=== PATIENT | female | born 1955 | race Caucasian/White ===

== ENCOUNTER 2018-12-08 06:08 | Day surgery (SDC) | payer MEDICARE ==
[~2018-12-08] VITALS: Ht 154.9 cm; Wt 48.5 kg
[~2018-12-08 06:08] MED LIST: ALENDRONATE70 MG PO; CALCIUM/D600 M3 PO; CENTRUM SILVER ULTRA PO; CENTRUM SILVER1 TA1 PO; LISINOPRIL10 MG PO; NORVASC5 M1 PO
[2018-12-08] MEDS ORDERED: PERCOCET 5/325M1 TAB PO (09:32)
[2018-12-08 10:03] VITALS: BP 131/62
== END 2018-12-08 10:32 | disposition home or self-care (01) ==
LOC: ORM 06:08
PROVIDERS: ATTEND Surgery
PROC: 0HBT0ZX Excision of Right Breast, Open Approach, Diagnostic (ICD-10-PCS; principal; 2018-12-08)
DX: D05.11 Intraductal carcinoma in situ of right breast (principal)

== ENCOUNTER 2021-01-25 09:21 | Day surgery (SDC) | payer MEDICARE ==
[~2021-01-25] VITALS: Ht 154.9 cm; Wt 43.5 kg
[~2021-01-25 09:21] MED LIST changes: +AROMASIN25 MG PO; +PERCOCET 5/325M1 TAB PO; +XGEVA SC
[2021-01-25] MEDS ORDERED: PERCOCET 5/321 COMBO PO (11:40)
[2021-01-25 13:00] VITALS: BP 129/67
== END 2021-01-25 12:53 | disposition home or self-care (01) ==
LOC: ENDO 09:21
PROVIDERS: ATTEND Surgery
PROC: 0DJD8ZZ Inspection of Lower Intestinal Tract, Via Natural or Artificial Opening Endoscopic (ICD-10-PCS; principal; 2021-01-25)
PROC: 06BY3ZC Excision of Hemorrhoidal Plexus, Percutaneous Approach (ICD-10-PCS; 2021-01-25)
DX: Z12.11 Encounter for screening for malignant neoplasm of colon (principal); K64.2 Third degree hemorrhoids; I10 Essential (primary) hypertension; Z85.3 Personal history of malignant neoplasm of breast
CPT/HCPCS: 46947; G0121; C9290

== ENCOUNTER 2021-01-25 16:15 | Emergency (ER) | payer MEDICARE ==
[~2021-01-25] VITALS: Ht 154.9 cm; Wt 43.6 kg
[~2021-01-25 16:15] MED LIST changes: +PERCOCET 5/321 COMBO PO
[2021-01-25 17:06] LABS: HEMATOCRIT 42.5 % (37.0-47.0); HEMOGLOBIN 13.9 g/dl (12.0-16.0); IMMATURE GRANULOCYTES 0.2 % (0.0-5.0); MEAN CELL VOLUME 100.7 fL CALC (80.0-100.0); MEAN CORPUSCULAR HGB 32.9 pG CALC (26.0-32.0); MEAN CORPUSCULAR HGB CONC 32.7 g/dL CAL (32.0-36.0); NEUT# 13.23 thou/uL (2.00-7.15); RED BLOOD COUNT 4.22 mill/uL (4.20-5.60); RED CELL DISTRI WIDTH 12.4 % (11.5-15.5)
[2021-01-25 17:23] LABS: ALBUMIN 4.1 g/dL (3.2-5.0); ALKALINE PHOSPHATASE 63 u/l (38-126); ANION GAP 8 (6-22 (CALC)); BILIRUBIN, TOTAL 0.5 mg/dL (0.0-1.4); BUN 16 mg/dL (8-23); BUN/CREATININE RATIO 35 (12-20 (CALC)); CARBON DIOXIDE 31 mmol/l (22-30); CHLORIDE 100 mmol/l (95-108); CREATININE 0.4 mg/dL (0.5-1.0); GFR > 60 ML/MIN (>=60 (CALC)); GFR FOR AFR.AMER. > 60 ML/MIN (>=60 (CALC)); POTASSIUM 3.4 mmol/l (3.5-5.1); SGOT/AST 34 u/l (9-36); SODIUM 136 mmol/l (137-146)
[2021-01-25 18:34] VITALS: BP 132/76
== END 2021-01-25 18:35 | disposition home or self-care (01) ==
LOC: ED 16:15
PROVIDERS: Emergency Medicine
DX: K91.840 Postprocedural hemorrhage of a digestive system organ or structure following a digestive system procedure (principal); I10 Essential (primary) hypertension; Y83.8 Other surgical procedures as the cause of abnormal reaction of the patient, or of later complication, without mention of misadventure at the time of the procedure